=== PATIENT | male | born 1960 | race Caucasian/White ===

== ENCOUNTER 2021-04-14 11:45 | Emergency (ER) | payer OTHER, SELFPAY ==
--- NOTE | ~2021-04-14 | CT_ITS ---
EXAMINATION: CT abdomen pelvis w con INDICATION: Left lower quadrant pain TECHNIQUE: Computed tomographic images of the abdomen and pelvis were obtained after the administrati on of 100 cc of Omnipaque 350 intravenous contrast. The dose-length product (DLP) was 463.11 mGy-cm. Automated exposure control and iterative reconstruction technique were employed. COMPARISON: None available FINDINGS: Minimal dependent atelectasis is present in the lung bases. The heart size is normal. Calci fied coronary artery atherosclerosis is noted. The liver, spleen, pancreas, gallbladder, and adrenal glands are normal. The kidneys are unremarkable. There is calcified atherosclerosis of the aorta and many of the other arteries. No pathologically enlarged abdominal or pelvic lymph nodes are identified . There is no free intraperitoneal gas or evidence of bowel obstruction. There is diffuse wall thicke marika throughout the colon. There is advanced osteoarthritis in the left hip with fragmentation of the femoral head. Changes of right total hip arthroplasty are noted. IMPRESSION: 1. Findings consistent with pancolitis. Reviewed, dictated and finalized at location B.
[2021-04-14 11:52] VITALS: BP 106/79; PULSE 96; RESP 16; TEMP 36.4; O2SAT 99
[2021-04-14 12:24] LABS: Basophils Absolute Auto 0.1 K/mm3 (0.0-0.1); Basophils Percent Auto 0.8 % (0.2-1.2); Eosinophils Absolute Auto 0.2 K/mm3 (0-0.3); Eosinophils Percent Auto 1.5 % (0-4.4); Immature Granulocyte Absolute 0.06 K/mm3 (0.00-0.031); Immature Granulocyte Percent A 0.6 % (0-0.5); Lymphocytes Absolute Auto 1.12 K/mm3 (0.9-3.2); Lymphocytes Percent Auto 10.7 % (18.3-44.2); Mean Corpuscular HGB Conc 32.5 g/dl (32-36); Mean Corpuscular Hemoglobin 31.6 pg (26-34); Mean Corpuscular Volume 97.3 fl (80-100); Mean Platelet Volume 8.8 fl (7.4-10.4); Monocytes Absolute Auto 1.3 K/mm3 (0.1-0.6); Monocytes Percent Auto 12.8 % (2.6-8.5); Neutrophils Absolute Auto 7.7 K/mm3 (1.3-6.7); Neutrophils Percent Auto 73.6 % (45.5-73.1); Platelet Count Result 501 k/mm3 (150-375); Red Blood Count 4.11 M/mm3 (4.6-6.20); Red Cell Distribution Width 13.2 % (11.5-14.5); White Blood Count 10.5 K/mm3 (4.5-10.0)
[2021-04-14 12:42] LABS: Alanine Aminotransferase 15 U/L (4-50); Albumin Level 3.8 g/dL (3.5-5.1); Alkaline Phosphatase 90 U/L (38-126); Anion Gap 8 mmol/L (8-16); Aspartate Amino Transferase 23 U/L (17-59); Bilirubin,Total 0.2 mg/dL (0.2-1.3); Blood Urea Nitrogen 9 mg/dL (9-20); Calcium 9.1 mg/dL (8.4-10.2); Carbon Dioxide 23 mmol/L (22-30); Chloride 103 mmol/L (98-107); Estimated CRCL calculation 64 ml/min; Estimated Glomerular Filt Rate > 60; Glucose 117 mg/dL (65-110); Lipase 25 U/L (23-300); Potassium 4.1 mmol/L (3.4-5.0); Sodium 134 mmol/L (137-145)
--- NOTE | 2021-04-14 13:37 | ED.ABDPAIN ---
HPI - Abdominal Pain General Chief Complaint: Abdominal Pain Stated Complaint: Abd Pain x 2 weeks Time Seen by Provider: 04/14/21 11:57 History of Present Illness HPI narrative: Patient is a 60-year-old male who presents to the ER with abdominal cramping. Ongoing for 2 weeks. Associated with intermittent diarrhea. Also has occasional vomiting with this. Reports he had it for approximately 3 months and then the discomfort went away for 2 weeks and then returned again 2 weeks ago. He has tried a clear diet without a lot of improvement. No blood in his stool. No blood in his vomit. He is scheduled follow-up with a primary care physician because he has never had 1 previously. He is never had a colonoscopy. He does report weight loss and that he is now wearing suspenders instead of belts. Related Data Allergies Allergy/AdvReac Type Severity Reaction Status Date / Time No Known Allergies Allergy Mild Verified 04/14/21 11:51 Review of Systems Review of Systems: All systems reviewed & are unremarkable except as noted in HPI and below Constitutional: Constitutional: Denies chills, Denies fever(s) and Denies weakness ENT: Denies nasal congestion and Denies sore throat Cardiovascular: Cardiovascular: Denies chest pain, Denies rapid heart rate and Denies radiating jaw, neck or arm pain Respiratory: Respiratory: Denies cough and Denies dyspnea Gastrointestinal: Gastrointestinal: Reports abdominal pain, Reports bloating, Reports diarrhea and Reports nausea Musculoskeletal: Musculoskeletal: Denies back pain and Denies muscle cramps PMFSH Past Medical History Medical History (Updated 04/14/21 @ 14:38 by Baldemar Quezada MD) Healthy adult male Surgical History Surgical History (Updated 04/14/21 @ 13:42 by Baldemar Quezada MD) No history of previous surgery Social History Social History (Updated 04/14/21 @ 13:45 by Baldemar Quezada MD) Smoking status: Current every day smoker Alcohol intake: current Exam Narrative: GENERAL: Well-appearing, well-nourished, and in no acute distress. HEAD: Normocephalic, atraumatic. CHEST: Clear to auscultation. No respiratory distress. HEART: Regular rate and rhythm. Normal peripheral pulses. ABDOMEN: Soft, mild/moderate tenderness left upper and left lower quadrant, nondistended, normal active bowel sounds. EXTREMITIES: Normal range of motion. No edema. SKIN: Warm, dry, no rash. NEURO: Alert and oriented x3. PSYCH: Normal mood and affect. Course Course Emergency Course: Patient educated on findings of lab and CT results. Discussed treatment with Cipro and Flagyl. Recommend not drinking alcohol while on Flagyl. Follow-up with PCP. May require colonoscopy near future. Vital Signs Vital signs: Vital Signs Temperature 97.6 F 04/14/21 11:52 Pulse Rate 96 04/14/21 11:52 Respiratory Rate 16 04/14/21 11:52 Blood Pressure 106/79 04/14/21 11:52 Pulse Oximetry 99 04/14/21 11:52 Temperature 97.6 F 04/14/21 11:52 Pulse Rate 96 04/14/21 11:52 Respiratory Rate 16 04/14/21 11:52 Blood Pressure 106/79 04/14/21 11:52 Pulse Oximetry 99 04/14/21 11:52 MDM - Abdominal Pain Lab Data Result diagrams: 04/14/21 12:15 04/14/21 12:15 Labs: Lab Results 04/14/21 04/14/21 04/14/21 Range/Units 12:15 12:15 13:35 WBC 10.5 H (4.5-10.0) K/mm3 RBC 4.11 L (4.6-6.20) M/mm3 Hgb 13.0 L (14.0-18.0) g/dL Hct 40.0 L (42.0-52.0) % MCV 97.3 (80-100) fl MCH 31.6 (26-34) pg MCHC 32.5 (32-36) g/dl RDW 13.2 (11.5-14.5) % Plt Count 501 H (150-375) k/mm3 MPV 8.8 (7.4-10.4) fl Immature Gran % (Auto) 0.6 H (0-0.5) % Neut % (Auto) 73.6 H (45.5-73.1) % Lymph % (Auto) 10.7 L (18.3-44.2) % [place] % (Auto) 12.8 H (2.6-8.5) % Eos % (Auto) 1.5 (0-4.4) % Baso % (Auto) 0.8 (0.2-1.2) % Lymph # (Auto) 1.12 (0.9-3.2) K/mm3 [place] # (Auto) 1.3 H (0.1-0.6)
[2021-04-14 13:55] LABS: Add Urine Microscopic? YES; Appearance Urine Clear (Clear); Bacteria Urine Trace /hpf; Bilirubin Urine Negative (Negative); Blood Urine 1+ (Negative); Color Urine Amber (Yellow); Glucose Urine UA Negative (Negative); Ketones Urine Negative (Negative); Leukocyte Esterase Ur Negative LEU/UL (Negative); Mucus Urine Heavy /lpf; Nitrate Urine Negative (Negative); Protein Urine 2+ mg/dL (Negative); WBC Urine 0-3 /hpf
[2021-04-14 13:57] LABS: Specific Grav Ur 1.047 (1.001-1.035)
[2021-04-14 14:57] VITALS: BP 105/62; PULSE 90; RESP 18; O2SAT 99
== END 2021-04-14 14:58 | disposition home or self-care (01) ==
PROVIDERS: Emergency Provider Emergency Medicine; PCP Physician Assistant
DX: K51.00 Ulcerative (chronic) pancolitis without complications (principal); F17.200 Nicotine dependence, unspecified, uncomplicated; R10.9 Unspecified abdominal pain
CPT/HCPCS: 36415; 74177; 80053; 81001; 83690; 85025; 99284; Q9967

== ENCOUNTER 2021-05-11 13:59 | Outpatient (CLI) | payer OTHER, SELFPAY ==
--- NOTE | ~2021-05-11 | XR_ITS ---
XR hip LT min 2V DATE: 05/11/2021 14:19 INDICATION: Chronic left hip pain TECHNIQUE: AP, lateral views COMPARISON: 04/24/2021 CT abdomen pelvis FINDINGS: There is severe deformity of the left femoral head, with irregularity and flattening and pr ominent patchy sclerosis and cystic change, consistent with severe avascular necrosis. There is secon kwan prominent osteoarthritis. No recent fracture or dislocation of the left hip. Diffuse osteopenia. The pubic symphysis and sacroiliac joints appear normally aligned. Right hip prosthesis. 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 IMPRESSION: Severe avascular necrosis of left femoral head with secondary promi nent osteoarthritis Right hip prosthesis Osteopenia
== END 2021-05-11 14:00 | disposition home or self-care (01) ==
LOC: ANHIMG 14:03
PROVIDERS: PCP Physician Assistant; Visit Provider Physician Assistant
DX: M85.852 Other specified disorders of bone density and structure, left thigh (principal); M87.852 Other osteonecrosis, left femur; F17.200 Nicotine dependence, unspecified, uncomplicated
CPT/HCPCS: 73502

== ENCOUNTER 2022-01-11 13:07 | Observation (INO) | payer OTHER, SELFPAY ==
[2022-01-11] VITALS (23 sets, daily range): BP systolic 115–157; BP diastolic 77–97; PULSE 84–97; RESP 16–84; TEMP 36.2–36.8; O2SAT 96–100; BMI 24.2
--- NOTE | ~2022-01-11 | CT_ITS ---
EXAMINATION: CT abdomen pelvis wo con DATE: 01/11/2022 14:36 INDICATION: colitis, abdominal pain, diarrhea TECHNIQUE: Computed tomography (CT) of the abdomen and pelvis was performed without intravenous contr ast. Automated exposure control and iterative reconstruction technique were employed. The dose-length product was 386.25 mGy-cm. COMPARISON: 04/14/2021 FINDINGS: Lower thorax: Coronary artery calcifications. Liver: Normal. Biliary/Gallbladder: Gallbladder is normal. No bile duct dilation. Pancreas: No mass or duct dilation. Spleen: Normal. Adrenals:No mass. Kidneys: No mass, stone, or hydronephrosis. GI tract: No small or large bowel dilation. Diffuse colonic wall thickening, similar in distribution to the prior study although slightly more severe in the hepatic flexure. Slightly increased appendix dilation, with mild surrounding inflammatory change. Mesentery/Peritoneum: No ascites, mass, or free air. Retroperitoneum: No mass. Pelvis: Pelvic organs are within normal limits. Soft Tissues: Bilateral fat-containing inguinal hernias. Bones: No acute osseous finding. IMPRESSION: Pancolitis, slightly worsening at the hepatic flexure. Inflammatory changes of the appendix may be re lated to colitis, however acute appendicitis cannot be excluded. Reviewed, dictated and finalized at location K. IMPRESSION: Pancolitis, slightly worsening at the hepatic flexure. Inflammatory changes of the appendix may be related to colitis, however acute appendicitis cannot be ex cluded.
[2022-01-11 13:30] LABS: Basophils Absolute Auto 0.1 K/mm3 (0.0-0.1); Eosinophils Absolute Auto 0.2 K/mm3 (0-0.3); Eosinophils Percent Auto 2.2 % (0-4.4); Hematocrit 40.2 % (42.0-52.0); Immature Granulocyte Absolute 0.04 K/mm3 (0.00-0.031); Immature Granulocyte Percent A 0.4 % (0-0.5); Lymphocytes Absolute Auto 1.05 K/mm3 (0.9-3.2); Lymphocytes Percent Auto 11.6 % (18.3-44.2); Mean Corpuscular HGB Conc 32.3 g/dl (32-36); Mean Corpuscular Hemoglobin 31.7 pg (26-34); Mean Platelet Volume 8.6 fl (7.4-10.4); Monocytes Absolute Auto 0.9 K/mm3 (0.1-0.6); Monocytes Percent Auto 9.5 % (2.6-8.5); Neutrophils Absolute Auto 6.8 K/mm3 (1.3-6.7); Neutrophils Percent Auto 75.3 % (45.5-73.1); Platelet Count Result 466 k/mm3 (150-375); Red Cell Distribution Width 13.2 % (11.5-14.5); White Blood Count 9.1 K/mm3 (4.5-10.0)
[2022-01-11 13:40] LABS: Alanine Aminotransferase 12 U/L (6-50); Albumin Level 3.9 g/dL (3.5-5.1); Alkaline Phosphatase 120 U/L (38-126); Anion Gap 5 mmol/L (8-16); Aspartate Amino Transferase 26 U/L (17-59); Bilirubin,Total 0.2 mg/dL (0.2-1.3); Blood Urea Nitrogen 7 mg/dL (9-20); Calcium 8.6 mg/dL (8.4-10.2); Carbon Dioxide 24 mmol/L (22-30); Chloride 106 mmol/L (98-107); Estimated CRCL calculation 77 ml/min; Estimated Glomerular Filt Rate > 60; Glucose 92 mg/dL (65-110); Lipase 72 U/L (23-300); Potassium 4.1 mmol/L (3.4-5.0); Sodium 135 mmol/L (137-145)
[2022-01-11 14:29] LABS: Add Urine Microscopic? YES; Appearance Urine Slightly Cloudy (Clear); Bilirubin Urine 1+ (Negative); Blood Urine 2+ (Negative); Color Urine Brown (Yellow); Glucose Urine UA Negative (Negative); Ketones Urine Negative (Negative); Leukocyte Esterase Ur Negative LEU/UL (Negative); Nitrate Urine Negative (Negative); Protein Urine 2+ mg/dL (Negative); Specific Grav Ur >= 1.030 (1.001-1.035); Urobilinogen Urine 0.2 mg/dL (<2.0)
[2022-01-11 14:35] LABS: Bacteria Urine Trace /hpf; Cellular Casts Urine Present /lpf; Mucus Urine Heavy /lpf; Squamous Epithelial Cell Urine Rare /hpf (Few)
--- NOTE | 2022-01-11 14:51 | ED.ABDPAIN ---
HPI - Abdominal Pain General Chief Complaint: Abdominal Pain Stated Complaint: abd pain and diarrhea Time Seen by Provider: 01/11/22 14:04 Source: patient, RN notes reviewed and old records reviewed Mode of arrival: ambulatory Limitations: no limitations History of Present Illness HPI narrative: This is a 61 year old male with history of colitis who presents for evaluation of diarrhea and abdominal pain. Patient was diagnosed with pancolitis in April 2021, and he was discharged with antibiotics. Patient had colonoscopy performed in October 2021 and he states he was only told he had polyps. He states he has been having intermittent diarrhea for 2 months, and it has been daily for 1 week. He reports multiple stools daily that he describes as pudding . He is also having intermittent left lower abdominal pain for 2 months. This pain is worse with eating and drinking. He denies nausea, vomiting, fever. He reports chills with pain. He reports passing blood in his stool 3 weeks ago but denies rectal bleeding since. MD elicited complaint: abdominal pain Pain Consistency: intermittent Related Data Allergies Allergy/AdvReac Type Severity Reaction Status Date / Time Penicillins Allergy Unknown Verified 01/11/22 14:02 Review of Systems Review of Systems: All systems reviewed & are unremarkable except as noted in HPI and below Constitutional: Constitutional: Reports chills Cardiovascular: Cardiovascular: Denies chest pain and Denies rapid heart rate Respiratory: Respiratory: Denies chest congestion and Denies cough Gastrointestinal: Gastrointestinal: Reports abdominal pain and Reports diarrhea Genitourinary: Genitourinary: Denies hematuria and Denies dysuria [facility] Past Medical History Medical History (Updated 01/11/22 @ 22:24 by Betsy Pemberton MD) Alcohol abuse Colitis Tobacco dependence Weight loss Surgical History Surgical History (Updated 01/11/22 @ 21:20 by Nona Mckoy PA-C) History of colonoscopy with polypectomy History of tonsillectomy History of total right hip arthroplasty No history of previous surgery Family History Family History (Updated 01/11/22 @ 21:20 by Nona Mckoy PA-C) Other Diabetes mellitus Social History Social History (Updated 01/11/22 @ 21:21 by Nona Mckoy PA-C) Social History: Surrogate decision maker: Alyx Enrique, mother. Code status: Full code. Smoking packs per day: 1 Smoking cigarettes per day: 20.0 Years smoked: 51 Smoking pack-years: 51.00 Smoking status: Current every day smoker Tobacco type: cigarettes Alcohol intake: current Drinks per week: 25 Alcohol use details: Patient estimates drinking a pint of fireball a day with occasional shots as well as beer. Substance use: never Living arrangements: alone Spiritual care concerns: No Exam Const: General: healthy appearing and alert Nutritional Appearance: well nourished Orientation/consciousness: patient oriented x3 HENMT: Head: normal to inspection Eyes: EOM: EOMs intact bilaterally Resp: Effort & Inspection: normal respiratory effort Auscultation: clear to auscultation bilaterally and breath sounds present Cardio: Rate: regular rate Rhythm: regular rhythm Heart sounds: no murmurs GI: GI Palp: Yes Soft to palpation, Yes Tenderness to palpation present (GI) (LLQ), Yes Guarding due to palpation present (GI) (voluntary), No Rigid due to palpation and No Hernia present Auscultation: normal bowel sounds Back/Spine/Pelvis: Back: no CVA tenderness Skin: General skin exam: normal color Rashes: no rashes Neuro: General: patient oriented x3, moves all extremities and CN's II-XI intact bilaterally Psych: Mental Status: mental status grossly normal Course Reevaluation(s) Reevaluation #1: I Discussed with patient that his CT shows worsening colitis . Due to worsening colitis and inflammation of appendix will admit for IV antibiotics and GI c
[2022-01-11] MEDS: SODIUM CHLORIDE 0.9% IV 1,000 ML 999 ML IV CONT ×2 (15:09→15:10)
[2022-01-11] MEDS: metroNIDAZOLE 500 MG/ISO 100ML 500 MG/100 ML BAG 100 MG IVPB (15:37)
--- NOTE | 2022-01-11 15:48 | PC.NURSE ---
GI at bedside to assess pt.
--- NOTE | 2022-01-11 15:54 | WPDGICN ---
Assessment and Plan Assessment and plan (1) Pancolitis: Code(s): K51.00 - Ulcerative (chronic) pancolitis without complications Status: Inactive Assessment and Plan: it appears that he has been dealing with this for about 1 year given that his CT scan now is identical to the 1 he had last April. His symptoms were better when he had colonoscopy a few months ago. He cannot recall who did the procedure He will be scheduled for colonoscopy to be done tomorrow morning I discussed the procedure prep and risks with him. (2) Chronic diarrhea: Code(s): K52.9 - Noninfective gastroenteritis and colitis, unspecified Status: Acute Assessment and Plan: at times he cannot even drink liquids because it seems to go right through him. Even solid food will result in of loose bowel movement 15 or 20 minutes later. (3) Weight loss: Code(s): R63.4 - Abnormal weight loss Status: Acute Assessment and Plan: He lost about 10 or 15 lb due to not wanting to eat but most of this was last fall. His weight is fairly stable now although he has not eaten for the last 24 hours because of his discomfort. GI Consult Note Consult date/time: 01/11/22 15:54 HPI: Suhas Enrique is a 61 year old male who came to the emergency room today with abdominal pain and diarrhea. He states that he has had discomfort for the past month or 2. Actually this began about a year ago initially. He had had abdominal discomfort and severe diarrhea for a couple months when he went to the emergency room in April. He had a CT scan that showed pancolitis. He was discharged on antibiotics and felt better few weeks later. Over the past several months he began having episodes of diarrhea again and vague abdominal pain that would at times get severe and cramping in character. It is almost always in the lower left side. He has lost about 10 or 15 lb but that was last fall. It is a densely, he had a colonoscopy for screening couple months ago and was told it was normal except that the small polyp was removed. CT scan of the abdomen here again shows diffuse colitis, same as last year. He cannot recall who did his colonoscopy but it was done at [facility]. This time he can not recall the name of his primary care provider. He had not been traveling or taking antibiotics prior to his illness last year or with the more recent flare up. He has seen blood in the stools. About a month ago he passed what looked like up cup of dark red blood. He has seen blood in his stools and a few other occasions as well. There is no family history of inflammatory bowel disease or other colon issues. Review of Systems Review of Systems: All systems reviewed & are unremarkable except as noted in HPI and below PMFSH Past Medical History Medical History Colitis Healthy adult male Surgical History Surgical History No history of previous surgery Social History Social History Smoking status: Current every day smoker Alcohol intake: current Meds Home Medications and Allergies Home Medications Medication Instructions Recorded Confirmed Type ciprofloxacin HCl 500 mg tablet 500 mg PO Q12H #20 tabs 04/14/21 Rx (Cipro) metronidazole 500 mg tablet 500 mg PO Q8H #30 tabs 04/14/21 Rx Allergies Allergy/AdvReac Type Severity Reaction Status Date / Time Penicillins Allergy Unknown Verified 01/11/22 14:02 Vital Signs Vital Signs - 24 hr 01/11/22 13:10 01/11/22 14:20 01/11/22 14:21 Temperature 36.2 C L Pulse Rate 90 Respiratory Rate 18 Blood Pressure 128/89 115/86 Pulse Oximetry 97 100 Oxygen Delivery Room Air 01/11/22 14:43 01/11/22 14:45 01/11/22 15:27 Temperature Pulse Rate Respiratory Rate Blood Pressure Pulse
--- NOTE | 2022-01-11 16:00 | PM.IMHP ---
H&P: HPI History of Present Illness Date/Time: 01/11/22 16:00 Chief Complaint: Abdominal pain and diarrhea. Narrative: This is a 61-year-old smoker with history of alcohol abuse, colon polyps, and colitis who presented to the emergency department for evaluation of abdominal pain and diarrhea. Last April he had similar symptoms at which time a CT showed lewis colitis for which she was treated with antibiotics. His symptoms improved and a colonoscopy done at [facility] in October was unremarkable aside from a small benign colon polyp. Unfortunately about 2 months ago he started to have diarrhea again and the past week he reports having loose stools almost every hour. Additionally he has intermittent left mid to lower quadrant cramping that has not been significant enough for him to require analgesics. CT today once again showed findings of pancolitis and some inflammatory changes of the appendix though that may be related to the colitis. He is being admitted in this setting for further treatment and evaluation. On occasion he has noticed some dark red blood admixed with his stool and several weeks ago he had an episode where he passed a large amount of clots however he has not noticed any blood in his stool recently. He denies fever, chills, sweats, and vomiting. No recent antibiotic use or travel. He lost about 10 to 15 lb last fall but weight has remained stable since that time. No personal or family history of inflammatory bowel disease or colon cancer. Review of Systems Review of Systems: Twelve systems were reviewed. No cold or flu symptoms. No sick contacts. He has never had signs or symptoms of alcohol withdrawal. Last year when he had colitis he did not drink a drop of alcohol for 3 weeks and did just fine. Except as documented, all other systems were reviewed and are negative. [facility] Past Medical History Medical History (Updated 01/11/22 @ 21:24 by Nona Mckoy PA-C) Alcohol abuse Colitis Tobacco dependence Weight loss Surgical History Surgical History (Updated 01/11/22 @ 21:20 by Nona Mckoy PA-C) History of colonoscopy with polypectomy History of tonsillectomy History of total right hip arthroplasty No history of previous surgery Family History Family History (Updated 01/11/22 @ 21:20 by Nona Mckoy PA-C) Other Diabetes mellitus Social History Social History (Updated 01/11/22 @ 21:21 by Nona Mckoy PA-C) Social History: Surrogate decision maker: Alyx Enrique, mother. Code status: Full code. Smoking packs per day: 1 Smoking cigarettes per day: 20.0 Years smoked: 51 Smoking pack-years: 51.00 Smoking status: Current every day smoker Tobacco type: cigarettes Alcohol intake: current Drinks per week: 25 Alcohol use details: Patient estimates drinking a pint of fireball a day with occasional shots as well as beer. Substance use: never Living arrangements: alone Spiritual care concerns: No Meds Home Medications and Allergies Home Medications Medication Instructions Recorded Confirmed Type ciprofloxacin HCl 500 mg tablet 500 mg PO Q12H #20 tabs 04/14/21 Rx (Cipro) metronidazole 500 mg tablet 500 mg PO Q8H #30 tabs 04/14/21 Rx Allergies Allergy/AdvReac Type Severity Reaction Status Date / Time Penicillins Allergy Unknown Verified 01/11/22 14:02 Vital Signs Vital Signs - 24 hr 01/11/22 13:10 01/11/22 14:20 01/11/22 14:21 Temperature 97.1 F L Pulse Rate 90 Respiratory Rate 18 Blood Pressure 128/89 115/86 Pulse Oximetry 97 100 Oxygen Delivery Room Air 01/11/22 14:43 01/11/22 14:45 01/11/22 15:27 Temperature Pulse Rate Respiratory Rate Blood Pressure Pulse Oximetry 99 98 97 Oxygen Delivery 01/11/22 16:04 01/11/22 16:06 01/11/22 16:08 Temperature Pulse Rate 95 97 93 Respiratory Rate Blood Pressure 131/85 147/89 H 145/97 H Pulse Oximetry Oxygen Delivery Exam Narrative:
--- NOTE | 2022-01-11 16:24 | PC.NURSE ---
Hospitalist at bedside to assess pt.
[2022-01-11] MEDS: MORPHINE SULFATE (*CRX) 4 MG/ML INJ IV PUSH (18:15)
--- NOTE | 2022-01-11 18:29 | PC.NURSE ---
Patient declines administration of Mirilax until in inpatient hospital bed.
--- NOTE | 2022-01-11 19:19 | PC.NURSE ---
Patient report given to KYM Lagunas. All questions answered and care of patient transferred.
--- NOTE | 2022-01-11 19:22 | PC.NURSE ---
Report received from Kasandra RN and care of pt assumed at this time.
[2022-01-11] MEDS: polyethylene glycoL 3350 238 GM BOTTLE PO (20:24)
[2022-01-11] MEDS: SODIUM CHLORIDE 0.9% IV 1,000 ML 125 ML IV CONT (20:24)
[2022-01-11] MEDS: THIAMINE HCL 200 MG/2 ML VIAL 100 MG IV PUSH (22:07)
--- NOTE | 2022-01-11 22:22 | PC.NURSE ---
This patient, Suhas Enrique, was admitted to 3 Medical Room 344-01. Patient/family oriented to hospital policies and general routines including ID bracelet, bed and alarms, visiting hours, pain management, procedures, bathroom and other care routines, personal items, smoking policy, room service/diet, and visiting hours. Information on how to activate the Rapid Response Team has been discussed. Patient/Family are encouraged to report perceived risks to care and to ask questions if they do not understand what they are told or what they should do. Pt up to floor and colon prep started, instructed pt need to complete prep for test in am.
[2022-01-12] VITALS (8 sets, daily range): BP systolic 96–138; BP diastolic 66–88; PULSE 74–97; RESP 16–25; TEMP 36.7–37.1; O2SAT 93–99
[2022-01-12] MEDS: metroNIDAZOLE 500 MG/ISO 100ML 500 MG/100 ML BAG 100 MG IVPB ×5 (00:28→23:38)
[2022-01-12 05:46] LABS: Basophils Absolute Auto 0.1 K/mm3 (0.0-0.1); Basophils Percent Auto 1.1 % (0.2-1.2); Eosinophils Absolute Auto 0.1 K/mm3 (0-0.3); Eosinophils Percent Auto 0.9 % (0-4.4); Hematocrit 35.4 % (42.0-52.0); Hemoglobin 11.4 g/dL (14.0-18.0); Immature Granulocyte Absolute 0.05 K/mm3 (0.00-0.031); Immature Granulocyte Percent A 0.6 % (0-0.5); Lymphocytes Absolute Auto 1.15 K/mm3 (0.9-3.2); Lymphocytes Percent Auto 13.5 % (18.3-44.2); Mean Corpuscular HGB Conc 32.2 g/dl (32-36); Mean Corpuscular Hemoglobin 31.6 pg (26-34); Mean Corpuscular Volume 98.1 fl (80-100); Mean Platelet Volume 8.6 fl (7.4-10.4); Monocytes Percent Auto 11.9 % (2.6-8.5); Neutrophils Absolute Auto 6.1 K/mm3 (1.3-6.7); Platelet Count Result 380 k/mm3 (150-375); Red Blood Count 3.61 M/mm3 (4.6-6.20); Red Cell Distribution Width 13.1 % (11.5-14.5); White Blood Count 8.5 K/mm3 (4.5-10.0)
[2022-01-12 06:14] LABS: Alanine Aminotransferase 9 U/L (6-50); Albumin Level 3.2 g/dL (3.5-5.1); Alkaline Phosphatase 91 U/L (38-126); Anion Gap 5 mmol/L (8-16); Aspartate Amino Transferase 22 U/L (17-59); Bilirubin,Total 0.2 mg/dL (0.2-1.3); Blood Urea Nitrogen 6 mg/dL (9-20); Calcium 7.7 mg/dL (8.4-10.2); Carbon Dioxide 20 mmol/L (22-30); Chloride 106 mmol/L (98-107); Estimated CRCL calculation 77 ml/min; Estimated Glomerular Filt Rate > 60; Glucose 91 mg/dL (65-110); Magnesium 1.7 mg/dL (1.6-2.3); Potassium 3.6 mmol/L (3.4-5.0); Sodium 131 mmol/L (137-145)
[2022-01-12] MEDS: LACTATED RINGERS 1,000 ML 150 ML IV CONT (09:21)
[2022-01-12] MEDS: fentaNYL CITRATE INJ (*CRX) 100 MCG/2 ML VIAL 25 MCG IV PUSH ×2 (09:22→10:29)
--- NOTE | 2022-01-12 09:33 | WPDANESEPPF ---
Anes - Initial Pre Proc Eval Procedure: Operation Date: 01/12/22 10:30 Proposed Procedures p Colonoscopy - Suhas Mckenzie MD Date/Time: 01/12/22 09:33 Surgeon: Jasmin Mckee PA-C Pre Op Diagnosis: pancolitis Patient Data Age: 61 Gender: M Height: 1.75 m Weight: 74.5 kg Last Vital Signs Temp 98.2 F 01/12/22 09:00 Pulse 96 01/12/22 09:00 Resp 16 01/12/22 09:00 BP 134/88 01/12/22 09:00 Pulse Ox 98 01/12/22 09:00 O2 Del Method Room Air 01/12/22 09:00 Allergies Allergy/AdvReac Type Severity Reaction Status Date / Time Penicillins Allergy Unknown Verified 01/12/22 09:03 Home Medications Medication Instructions Recorded Confirmed Type No Home Medications 01/12/22 01/12/22 History Laboratory Tests 01/11/22 01/11/22 01/11/22 13:20 13:20 14:11 WBC 9.1 K/mm3 K/mm3 (4.5-10.0) RBC 4.10 M/mm3 L M/mm3 (4.6-6.20) Hgb 13.0 g/dL L g/dL (14.0-18.0) Hct 40.2 % L % (42.0-52.0) MCV 98.0 fl fl (80-100) MCH 31.7 pg pg (26-34) MCHC 32.3 g/dl g/dl (32-36) RDW 13.2 % % (11.5-14.5) Plt Count 466 k/mm3 H k/mm3 (150-375) MPV 8.6 fl fl (7.4-10.4) Immature Gran % (Auto) 0.4 % % (0-0.5) Neut % (Auto) 75.3 % H % (45.5-73.1) Lymph % (Auto) 11.6 % L % (18.3-44.2) [place] % (Auto) 9.5 % H % (2.6-8.5) Eos % (Auto) 2.2 % % (0-4.4) Baso % (Auto) 1.0 % % (0.2-1.2) Lymph # (Auto) 1.05 K/mm3 K/mm3 (0.9-3.2) [place] # (Auto) 0.9 K/mm3 H K/mm3 (0.1-0.6) Eos # (Auto) 0.2 K/mm3 K/mm3 (0-0.3) Baso # (Auto) 0.1 K/mm3 K/mm3 (0.0-0.1) Abs Immat Gran (auto) 0.04 K/mm3 H K/mm3 (0.00-0.031) Absolute Neuts (auto) 6.8 K/mm3 H K/mm3 (1.3-6.7) Absolute Nucleated RBC 0.0 K/mm3 K/mm3 (0.0-0.012) Nucleated RBC % 0.0 % % (0.0-0.2) Sodium 135 mmol/L L mmol/L (137-145) Potassium 4.1 mmol/L mmol/L (3.4-5.0) Chloride 106 mmol/L mmol/L (98-107) Carbon Dioxide 24 mmol/L mmol/L (22-30) Anion Gap 5 mmol/L L mmol/L (8-16) BUN 7 mg/dL L mg/dL (9-20) Creatinine 0.90 mg/dL mg/dL (0.7-1.3) Estim Creat Clear Calc 77 ml/min ml/min Estimated GFR > 60 (59 - ) Glucose 92 mg/dL mg/dL (65-110) Calcium 8.6 mg/dL mg/dL (8.4-10.2) Magnesium Total Bilirubin 0.2 mg/dL mg/dL (0.2-1.3) AST 26 U/L U/L (17-59) ALT 12 U/L U/L (6-50) Alkaline Phosphatase 120 U/L U/L (38-126) Total Protein 8.0 g/dL g/dL (6.3-8.2) Albumin 3.9 g/dL g/dL (3.5-5.1) Lipase 72 U/L U/L (23-300) Urine Color Brown H (Yellow) Urine Appearance Slightly cloudy (Clear) Urine pH 6.0 (5.0-9.0) Ur Specific [place] >= 1.030 (1.001-1.035) Urine Protein 2+ mg/dL H mg/dL (Negative) Urine Glucose (UA) Negative mg/dL mg/dL (Negative) Urine Ketones Negative mg/dL mg/dL (Negative) Ur Blood (Man) 2+ H (Negative) Urine Nitrate Negative (Negative) Urine Bilirubin 1+ H (Negative) Urine Urobilinogen 0.2 mg/dL mg/dL (<2.0) Leukocyte Esterase Rfl Negative NITZA/UL NITZA/UL (Negative) Urine RBC 6-10 /hpf H /hpf (0-2) Urine WBC 4-6 /hpf H /hpf Ur Squamous Epith Cells Rare /hpf /hpf (Few) Urine Bacteria Trace /hpf /hpf Cellular Casts Present /lpf H /lpf (None) Hyaline Casts 3-4 /lpf H /lpf (None) Urine Mucus Heavy /lpf H /lpf 01/12/22 01/12/22 05:31 05:31 WBC 8.5 K/mm3 K/mm3 (4.5-10.0) RBC 3.61 M/mm3 L M/mm3 (4.6-6.20) Hgb 11.4 g/dL L g/dL (14.0-1
--- NOTE | 2022-01-12 12:03 | PM.IMPN ---
Progress Note: A&P Assessment and Plan (1) Pancolitis: Code(s): K51.00 - Ulcerative (chronic) pancolitis without complications Status: Acute Assessment and Plan: Colonoscopy showed rectal polyps, colonic ulcers, and ulcerative chronic pancolitis without complications. Stool studies including stool culture have been ordered and are pending. D/C antibiotics given colonoscopy finding, no leukocytosis. GI recommended follow-up in the office, resumption of home medications, starting a low residue diet, and follow-up with the GI office pending biopsies and stool cultures. We have advanced his diet today, if he tolerates this and we can get pain under better control, likely D/C tomorrow. (2) Elevated blood pressure reading: Code(s): R03.0 - Elevated blood-pressure reading, without diagnosis of hypertension Status: Acute Assessment and Plan: Patient with mild hypertension, is normotensive today. Follow-up PCP after discharge with home readings. (3) Tobacco dependence: Code(s): F17.200 - Nicotine dependence, unspecified, uncomplicated Status: Acute Assessment and Plan: He declines the need for nicotine patch. (4) Alcohol abuse: Code(s): F10.10 - Alcohol abuse, uncomplicated Status: Acute Assessment and Plan: CIWAs all < 4. PRN ativan for elevated CIWA. Denies ever having signs or symptoms of alcohol withdrawal. Initiate CIWA protocol, however, given significant alcohol intake. Subjective Date/time seen: 01/12/22 12:03 7-year-old male with history of alcohol abuse, lewis colitis who presents for abdominal pain x2 weeks. He does endorse abdominal pain, and nausea and vomiting yesterday with his bowel prep. He denies nausea, vomiting, chest pain, shortness of breath, lower extremity swelling, or blood in the stool today. He wants a cigarette and declines a nicotine patch. We discussed the colonoscopy findings of ulcerative colitis. He states he does have a niece with Crohn's disease, but no other family members with ulcerative colitis. Review of Systems Review of Systems: All systems reviewed & are unremarkable except as noted in HPI and below Exam Narrative: GENERAL APPEARANCE: Thin adult male, alert and oriented x 3, in mild distress. HEENT: PERRL, EOMI. Sclerae anicteric. Moist mucous membranes. NECK: Supple. No JVD or obvious carotid bruits. RESPIRATORY: Respirations are nonlabored. Breath sounds are equal and clear bilaterally. No wheezes, Rhonchi, or rales. CARDIOVASCULAR: Regular rate and rhythm with normal S1-S2. No murmurs, gallops, or rubs. GASTROINTESTINAL: Soft, concave, and benign. Patient does have diffuse abdominal tenderness. No organomegaly or hernia. Bowel sounds are present. SKIN: Warm, dry, well perfused. Good turgor. No lesions, nodules, or rashes noted. EXTREMITIES: No cyanosis, clubbing, or edema. Radial and pedal pulses intact. NEUROLOGICAL: Alert. Cranial nerves 2-12 are grossly intact. No gross focal deficits to casual conversation. PSYCHIATRIC: Pleasant and cooperative with normal mood and affect. Objective Data Vital Signs Vital Signs: Vital Signs - 24 hr 01/11/22 13:10 01/11/22 14:20 01/11/22 14:21 Temperature 97.1 F L Pulse Rate 90 Respiratory Rate 18 Blood Pressure 128/89 115/86 Pulse Oximetry 97 100 Oxygen Delivery Room Air 01/11/22 14:43 01/11/22 14:45 01/11/22 15:27 Temperature Pulse Rate Respiratory Rate Blood Pressure Pulse Oximetry 99 98 97 Oxygen Delivery 01/11/22 16:04 01/11/22 16:06 01/11/22 16:08 Temperature Pulse Rate 95 97 93 Respiratory Rate Blood Pressure 131/85 147/89 H 145/97 H Pulse Oximetry Oxygen Delivery 01/11/22 16:41 01/11/22 16:45 01/11/22 16:47 Temperature Pulse Rate Respiratory Rate Blood Pressure 125/77 Pulse Oximetry 100 100 100 Oxygen Delivery 01/11/22 17:00
[2022-01-12] MEDS: SODIUM CHLORIDE 0.9% IV 1,000 ML 75 ML IV CONT (12:20)
[2022-01-12] MEDS: MORPHINE SULFATE (*CRX) 2 MG/ML INJ IV PUSH (19:49)
[2022-01-13] MEDS: SODIUM CHLORIDE 0.9% IV 1,000 ML 75 ML IV CONT (05:14)
[2022-01-13] MEDS: metroNIDAZOLE 500 MG/ISO 100ML 500 MG/100 ML BAG 100 MG IVPB (05:14)
[2022-01-13 05:35] VITALS: BP 129/85; PULSE 92; RESP 16; TEMP 36.6; O2SAT 97
--- NOTE | 2022-01-13 06:55 | WPDGIPROGNO ---
Progress Note: A&P Assessment and Plan (1) Pancolitis: Code(s): K51.00 - Ulcerative (chronic) pancolitis without complications Status: Inactive Assessment and Plan: it appears that he has been dealing with this for about 1 year given that his CT scan now is identical to the 1 he had last April. His symptoms were better when he had colonoscopy a few months ago. He cannot recall who did the procedure He will be scheduled for colonoscopy to be done tomorrow morning I discussed the procedure prep and risks with him. 01/13 I think he could be discharged today on mesalamine. I will have him follow-up with me in the office in 1 week. (2) Chronic diarrhea: Code(s): K52.9 - Noninfective gastroenteritis and colitis, unspecified Status: Acute Assessment and Plan: at times he cannot even drink liquids because it seems to go right through him. Even solid food will result in of loose bowel movement 15 or 20 minutes later. Stool studies have not yet been obtained. Unfortunately they were not obtained during his colonoscopy prep that he has had no stools since his procedure. The laboratory would no longer except stool specimens from the endoscopy department. (3) Weight loss: Code(s): R63.4 - Abnormal weight loss Status: Acute Assessment and Plan: He lost about 10 or 15 lb due to not wanting to eat but most of this was last fall. His weight is fairly stable now although he has not eaten for the last 24 hours because of his discomfort. Subjective Date/time seen: Suhas Enrique is a 61 year old male? who came to the emergency room today with abdominal pain and diarrhea.? He states that he has had discomfort for the past month or 2.? Actually this began about a year ago initially.? He had had abdominal discomfort and severe diarrhea for a couple months when he went to the emergency room in April.? He had a CT scan that showed pancolitis.? He was discharged on antibiotics and felt better few weeks later.? Over the past several months he began having episodes of diarrhea again and vague abdominal pain that would at times get severe and cramping in character.? It is almost always in the lower left side.? He has lost about 10 or 15 lb but that was last fall.? It is a densely, he had a colonoscopy for screening couple months ago and was told it was normal except that the small polyp was removed. ? CT scan of the abdomen here again shows diffuse colitis, same as last year.? He cannot recall who did his colonoscopy? but it was done at [facility].? This time he can not recall the name of his primary care provider.? He had not been traveling or taking antibiotics prior to his illness last year or with the more recent flare up.? He has seen blood in the stools.? About a month ago he passed what looked like up cup of dark red blood. 01/13/22 06:55 Today he states he feels good. He has only mild pain. He tolerated his low residue diet last night. We are still awaiting records from [facility], where he apparently had a normal colonoscopy 2 months ago. This is strange because he has had severe colitis seen on CT scan for the past year. Because he is tolerating his diet, I think he could be discharged today and I will have a follow-up with me in the office in a week or 2. Depending on whether biopsies show ulcerative colitis or Crohn's disease, that will determine his appropriate therapy. For now however I will start him on mesalamine until we determine what other modalities might be necessary Exam Const: General: alert Orientation/consciousness: patient oriented x3 Resp: Auscultation: clear to auscultation bilaterally Cardio: Rhythm: regular rhythm GI: GI Palp: Yes abdominal tenderness ( mild today) Percussion: Yes normal to percussion Auscultation: normal bowel sounds Neuro: General: patient oriented x3 Objective Data Vital Signs Vital Signs: Vital Signs - 24 hr 01/12/
[2022-01-13 07:55] VITALS: PULSE 99; O2SAT 95
[2022-01-13] MEDS: MESALAMINE 250 MG CAP CR 1000 MG PO ×2 (09:50→12:58)
--- NOTE | 2022-01-13 09:51 | PM.DS ---
DS: Admitting Diagnosis Discharge Date 01/13/22 1600 Admitting Diagnosis Pancolitis DS: Discharge Diagnosis Discharge Diagnosis (1) Pancolitis: Code(s): K51.00 - Ulcerative (chronic) pancolitis without complications Status: Acute Assessment and Plan: Colonoscopy showed rectal polyps, colonic ulcers, and ulcerative chronic pancolitis without complications. Stool studies including stool culture have been ordered and are pending. D/C antibiotics given colonoscopy finding, no leukocytosis. GI recommended follow-up in the office, resumption of home medications, starting a low residue diet, and follow-up with the GI office pending biopsies and stool cultures. 01/13- Patient tolerated his low residue diet. GI started on mesalamine with OK to discharge today. Will need to follow up with GI in the office in 1-2 weeks for biopsy results and further medical management. Will D/C antibiotics given no indications of infection at this time. (2) Elevated blood pressure reading: Code(s): R03.0 - Elevated blood-pressure reading, without diagnosis of hypertension Status: Acute Assessment and Plan: Patient with mild hypertension during his stay, but stable. Follow-up PCP after discharge with home readings. (3) Tobacco dependence: Code(s): F17.200 - Nicotine dependence, unspecified, uncomplicated Status: Acute Assessment and Plan: He declines the need for nicotine patch. (4) Alcohol abuse: Code(s): F10.10 - Alcohol abuse, uncomplicated Status: Acute Assessment and Plan: CIWAs all 0 for the past 24 hrs. PRN ativan for elevated CIWA. Denies ever having signs or symptoms of alcohol withdrawal. DS: Summary Hospital Course Reason for hospitalization: Pancolitis Hospital Course: See above for full hospital course. Status at Discharge Cognitive/behavioral status at discharge: Progressing to baseline Time Spent with Patient Time attestation: Total time spent providing and/or coordinating discharge services: 35 mins DS: Data Data Completed and Pending Pending studies at discharge: Pending at discharge 01/12/22 09:59 Surgical [PTH] Routine Discharge Plan Discharge Attending physician on discharge: Debbie Rodriguez Consulting providers: Suhas Mckenzie Discharging Clinician: Jasmin Mckee Anticipated Discharge Date/Time: 01/13/22 14:33 Patient Disposition: Home, Self-Care Activity: unlimited Diet: low fiber Discharge Instructions: Medications: -Take all medications as prescribed. -Start new medications: Mesalamine. Instructions: - Continue a low-fiber/low residue diet - Be sure to get exercise like walking, but don't overdo it. - Be sure to get plenty of sleep at night and drink plenty of fluids. - Return if you experience worsening of your symptoms, loss of consciousness, chest pains, new shortness of breath, or fevers over 101.4 degrees. Follow up: - Follow-up with GI in 1-2 weeks with the results of your [place] colonoscopy. - Follow up with your primary care provider in 2-4 weeks It has been a pleasure taking care of you during your stay at [facility]! Patient Instructions: How to Stop Smoking (GEN), Low Fiber Diet (DC), Antibiotic Form Stand Alone Forms: General Discharge Information Follow-up/Referrals: Suhas Mckenzie MD [Physician] - 1 Week (Colonoscopy/ biopsy results. ) Discharge Medications: New Pentasa 250 mg Capsule, Extended Release 1,000 mg PO QID 14 Days Qty: 224 0RF No Action No Home Medications Date of admission: 01/11/22 16:20 Primary Care Provider: NoahVeda Admitting Provider: Vanesa Garland Attending physician on admission: Jasmin Mckee Condition: Stable Quality VTE Prophylaxis VTE prophylaxis: mechanical ordered
[2022-01-13 12:00] VITALS: BP 129/85
== END 2022-01-13 15:55 | disposition home or self-care (01) ==
LOC: ANHED 16:06 → ANH3MED 19:19
PROVIDERS: Family Medicine; Internal Medicine Gastroenterology; Admitting Provider Family Medicine; Emergency Provider General Practice; PCP Physician Assistant; Visit Provider Student in an Organized Health Care Education/Training Program
PROC: 0DJD8ZZ Inspection of Lower Intestinal Tract, Via Natural or Artificial Opening Endoscopic (ICD-10-PCS; CPT 45378; principal; 2022-01-12 10:30)
DX: K51.00 Ulcerative (chronic) pancolitis without complications (principal); K62.1 Rectal polyp; R63.4 Abnormal weight loss; R03.0 Elevated blood-pressure reading, without diagnosis of hypertension; F10.10 Alcohol abuse, uncomplicated; F17.210 Nicotine dependence, cigarettes, uncomplicated
CPT/HCPCS: 45380; 36415; 74176; 80053; 81001; 83690; 83735; 85025; 88305; 96361; 96365; 96366; 96367; 96374; 96375; 96376; 99285; A9270; G0378; G0379; J1956; J2270; J2704; J3010; J3411; J7030; J7120

== ENCOUNTER 2022-02-09 13:40 | Emergency (ER) | payer OTHER, SELFPAY ==
--- NOTE | ~2022-02-09 | XR_ITS ---
EXAMINATION: XR knee LT 3V DATE: 02/09/2022 14:06 INDICATION: Left knee pain TECHNIQUE: Three views of the left knee were obtained. COMPARISON: None. FINDINGS: Alignment is normal. No fracture or osteochondral lesion. Chondrocalcinosis is noted. There is mild tricompartmental osteoarthritis characterized by tiny marginal osteophytes. No joint effusio n/synovitis. Soft tissues are unremarkable. IMPRESSION: 1. No acute osseous abnormality. Reviewed, dictated and finalized at location B.
[2022-02-09 13:44] VITALS: BP 140/92; PULSE 70; RESP 18; TEMP 36.9; O2SAT 99
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
[2022-02-09] MEDS: HYDROcodone/acetaminophen (*CRX) 5-325 MG TABLET 1 TAB PO (14:44)
== END 2022-02-09 15:00 | disposition home or self-care (01) ==
PROVIDERS: Emergency Provider Nurse Practitioner Family; PCP Physician Assistant
DX: S89.92XA Unspecified injury of left lower leg, initial encounter (principal); Z96.641 Presence of right artificial hip joint; F17.210 Nicotine dependence, cigarettes, uncomplicated; V18.4XXA Pedal cycle driver injured in noncollision transport accident in traffic accident, initial encounter; Y93.55 Activity, bike riding
CPT/HCPCS: 73562; 99283; A9270

== ENCOUNTER 2022-10-03 10:03 | Outpatient (CLI) | payer OTHER, SELFPAY ==
[2022-10-13 20:37] LABS: Calprotectin, Stool 62 mcg/g
== END 2022-10-03 10:04 | disposition home or self-care (01) ==
LOC: ANHLAB 10:05
PROVIDERS: PCP Physician Assistant; Visit Provider Internal Medicine Gastroenterology
DX: K51.00 Ulcerative (chronic) pancolitis without complications (principal)
CPT/HCPCS: 83993

== ENCOUNTER 2023-08-21 14:09 | Outpatient (CLI) | payer OTHER, SELFPAY ==
--- NOTE | ~2023-08-21 | CT_ITS ---
EXAMINATION:CT lung screening DATE: 08/21/2023 14:55 INDICATION: Personal history of nicotine dependence. Current smoker with 51 pack year history. TECHNIQUE: Computed tomography (CT) of the chest was performed without intravenous contrast. Automate d exposure control and iterative reconstruction technique were employed. The dose-length product (DLP ) was 99.19 mGy-cm. COMPARISON: CT abdomen and pelvis 01/11/22. FINDINGS: There is mild scarring at the lung apices. There is mild emphysema. There is a 9 mm nodule in right upper lobe. There is a 3 mm nodule in right upper lobe. There is mild atelectasis bilaterall y. There is a small left pleural effusion. The heart size is normal. There are coronary artery calcif ications. No pericardial effusion. There is mild bilateral gynecomastia. There is moderate cervical s pondylosis and mild thoracic spondylosis. IMPRESSION: 1. Lung-RADS category 4A: Suspicious. PET/CT or 3 month noncontrast low-dose chest CT is recommended. Reviewed, dictated and finalized at location E. VERY REP IMPRESSION: 1. Lung-RADS category 4A: Suspicious. PET/CT or 3 month noncontrast low-dose ch est CT is recommended.
== END 2023-08-21 14:10 | disposition home or self-care (01) ==
PROVIDERS: PCP Physician Assistant; Visit Provider Physician Assistant
DX: Z12.2 Encounter for screening for malignant neoplasm of respiratory organs (principal); R91.8 Other nonspecific abnormal finding of lung field; M25.559 Pain in unspecified hip; M79.659 Pain in unspecified thigh; Z87.891 Personal history of nicotine dependence
CPT/HCPCS: 71271

== ENCOUNTER 2023-09-13 13:28 | Outpatient (CLI) | payer OTHER, SELFPAY ==
--- NOTE | ~2023-09-13 | PE_ITS ---
EXAMINATION: PET skull to mid thigh DATE: 09/13/2023 15:13 INDICATION: Abnormal finding in lung . Lung nodule. TECHNIQUE: Blood glucose level was 98 mg/dL. 6.375 mCi of 18-fluorodeoxyglucose (18-FDG) was administ ered i.v. Low dose computed tomography (CT) images were acquired from the base of the brain to the pr oximal thighs for attenuation correction and anatomic localization. Automated exposure control was em ployed. Dose-length product (DLP) was 736 mGy-cm. Positron emission tomography (PET) images were acqu ired in the same distribution. COMPARISON: Chest CT 08/21/2023 FINDINGS: Head/neck: There is mucosal thickening in the paranasal sinuses. There are no pathologically enlarged lymph nodes. Chest: There is mild emphysema. There is a 9 mm nodule in right upper lobe with maximum SUV of 4.7. N o pleural effusion. The heart size is normal. There are coronary artery calcifications. No pericardia l effusion. There are multiple healing left rib fractures. Abdomen/pelvis/proximal thighs: The liver, gallbladder, spleen, pancreas, adrenal glands, and kidneys are normal. There is a left inguinal hernia containing fat. There are no dilated loops of bowel. The re are no pathologically enlarged lymph nodes. There is no free intraperitoneal fluid. There is a tot al right hip arthroplasty. There is advanced left hip osteoarthritis. IMPRESSION: 1. 9 mm nodule in right lung upper lobe with increased activity, consistent with primary bronchogenic carcinoma. CT-guided biopsy is recommended. 2. Mild emphysema. Reviewed, dictated and finalized at location E. TORIAL ACCOUNT MANAGER IMPRESSION: 1. 9 mm nodule in right lung upper lobe with increased activity, consistent wit h primary bronchogenic carcinoma. CT-guided biopsy is recommended. 2. Mild emphysema.
--- NOTE | ~2023-09-13 | XR_ITS ---
EXAMINATION: XR hip LT min 2V DATE: 09/13/2023 15:08 INDICATION: Idiopathic aseptic necrosis of left femur. TECHNIQUE: 2 views of left hip were obtained. COMPARISON: Left hip radiographs 05/11/2021 FINDINGS: Bone alignment is normal. No acute fracture. There is advanced left hip osteoarthritis. Lef t femoral head demonstrates sclerosis and superior flattening. IMPRESSION: 1. Advanced left hip osteoarthritis, stable from 05/11/2021. Reviewed, dictated and finalized at location E. S SERVICE ROUTE MANAGER
[2023-09-13 13:47] LABS: Glucose Point of Care 98 mg/dl (65-105)
== END 2023-09-13 13:29 | disposition home or self-care (01) ==
PROVIDERS: PCP Physician Assistant; Visit Provider Physician Assistant
DX: M87.052 Idiopathic aseptic necrosis of left femur (principal); R91.8 Other nonspecific abnormal finding of lung field; M16.12 Unilateral primary osteoarthritis, left hip
CPT/HCPCS: 73502; 78815; A9552

== ENCOUNTER 2023-09-25 15:42 | Outpatient (CLI) | payer OTHER, SELFPAY ==
--- NOTE | ~2023-09-25 | XR_ITS ---
EXAMINATION: XR lumbar spine 2-3V DATE: 09/25/2023 16:03 INDICATION: Lumbago. Sciatica. TECHNIQUE: 3 views of lumbar spine were obtained. COMPARISON: CT abdomen and pelvis 01/11/2022 FINDINGS: There is 8 degrees levocurvature of lumbar spine. Vertebral body heights are normal. There is mildly decreased disc height at L3-L4. There are endplate osteophytes at most levels. There is mul tilevel mild facet joint osteoarthritis. There is a total right hip arthroplasty. There is osteonecro sis of left femoral head and severe left hip osteoarthritis. IMPRESSION: 1. Mild lumbar spondylosis. Reviewed, dictated and finalized at location E. [employer] IMPRESSION: 1. Mild lumbar spondylosis.
== END 2023-09-25 15:43 | disposition home or self-care (01) ==
PROVIDERS: PCP Physician Assistant; Visit Provider Physician Assistant
DX: M54.40 Lumbago with sciatica, unspecified side (principal); I73.9 Peripheral vascular disease, unspecified; M47.896 Other spondylosis, lumbar region
CPT/HCPCS: 72100

== ENCOUNTER 2023-12-11 14:41 | Outpatient (CLI) | payer OTHER, SELFPAY ==
[2023-12-11 15:13] LABS: Hematocrit 37.3 % (42.0-52.0); Hemoglobin 12.3 g/dL (14.0-18.0); Mean Corpuscular Hemoglobin 33.9 pg (26-34); Mean Corpuscular Volume 102.8 fl (80-100); Mean Platelet Volume 10.6 fl (7.4-10.4); Platelet Count Result 224 k/mm3 (150-375); Red Blood Count 3.63 M/mm3 (4.6-6.20); Red Cell Distribution Width 13.7 % (11.5-14.5)
[2023-12-11 15:32] LABS: Alanine Aminotransferase 22 U/L (6-50); Albumin Level 4.6 g/dL (3.5-5.1); Alkaline Phosphatase 86 U/L (38-126); Anion Gap 7 mmol/L (4-12); Aspartate Amino Transferase 47 U/L (17-59); Bilirubin,Total 0.7 mg/dL (0.2-1.3); Blood Urea Nitrogen 18 mg/dL (9-20); CRP < 0.5 mg/dL (<1.0); Calcium 9.3 mg/dL (8.4-10.2); Carbon Dioxide 23 mmol/L (22-30); Chloride 109 mmol/L (98-107); Estimated Glomerular Filt Rate > 60; Glucose 110 mg/dL (65-110); Sodium 139 mmol/L (137-145)
[2023-12-11 15:46] LABS: Erythrocyte Sedimentation Rate 20 mm/hr (0-20)
== END 2023-12-11 14:42 | disposition home or self-care (01) ==
LOC: ANHLAB 14:42
PROVIDERS: PCP Physician Assistant; Visit Provider Nurse Practitioner
DX: K51.00 Ulcerative (chronic) pancolitis without complications (principal)
CPT/HCPCS: 36415; 80053; 85027; 85652; 86140

== ENCOUNTER 2023-12-18 08:56 | Outpatient (CLI) | payer OTHER, SELFPAY ==
[2023-12-12 12:59] VITALS: BMI 26.0
--- NOTE | 2023-12-12 13:00 | PC.NURSE ---
Pre Radiology instructions Report to the outpatient leonard ronna on date _[id number]_ at time _0900_ for procedure Time: _1100_ YOU MAY BE MONITORED AT HOSPITAL FOR UP TO 4 HOURS AFTER YOUR PROCEDURE. A visitor will be allowed to accompany the patient into the hospital. You and your visitor will be asked to self-screen and do not enter if you have any COVID symptoms. A mask is OPTIONAL within the hospital. Patients are to have no food or drink 6 hours prior to procedure time Driving will be restricted after the procedure, you must have a person to drive you home. Labs will be drawn in preop area and once reviewed, you will be taken to radiology area for procedure. When the procedure is completed, you will be taken to outpatient where you will be monitored for several hours. You may have one visitor in this area. Other than holding anti-coagulants, patient may take other medication(s) as scheduled. Prior to your appointment date patients are instructed to hold anti-coagulants after discussing with ordering provider to stop. If unable to discontinue anti-coagulants please notify radiologist. ? No aspirin or warfarin (Coumadin) for 7 days prior to the procedure. ? No clopidogrel (Plavix), ticagrelor (Brilinta), prasugrel (Effient) or dabigatran (Pradaxa) for 5 days prior to the procedure. ? No rivaroxaban (Xarelto), apixaban (Eliquis), dipyridamole (Aggrenox or Persantine) or cilostazol (Pletal) for 2 days prior to the procedure. Medications to discontinue per physician: Date to take last dose: Please leave all valuables, including medications, at home the day of procedure. The hospital will not accept responsibility for valuables. Wear comfortable, loose fitting clothing.? Follow any additional instructions given to you from ordering provider. Telephone instructions given to _Suhas__and asked if any additional questions and then verbalized understanding. Patient advised to call scheduling provider office or registration scheduling [phone] if any additional questions.
[2023-12-18] VITALS (10 sets, daily range): BP systolic 112–143; BP diastolic 68–93; PULSE 59–92; RESP 16; TEMP 36.2; O2SAT 97–100
--- NOTE | ~2023-12-18 | XR_ITS ---
EXAMINATION: XR chest 1V DATE: 12/18/2023 11:40 INDICATION: Right lung nodule status post percutaneous biopsy. TECHNIQUE: A single frontal view of the chest was obtained. COMPARISON: Chest CT 08/21/2023 FINDINGS: There is a nodule in right upper lobe. There is a small right pneumothorax. No pleural effu rian. The heart size is normal. IMPRESSION: 1. Nodule in right lung upper lobe, consistent with primary bronchogenic carcinoma and postbiopsy hem orrhage. 2. Small right pneumothorax. Reviewed, dictated and finalized at location A. IMPRESSION: 1. Nodule in right lung upper lobe, consistent with primary bronchogenic carcin jhonatan and postbiopsy hemorrhage. 2. Small right pneumothorax.
--- NOTE | ~2023-12-18 | CT_ITS ---
EXAMINATION: CT biopsy lung w/imaging DATE: 12/18/2023 11:37 INDICATION: Neoplasm of uncertain behavior of right lung. TECHNIQUE: The procedure including the risks, benefits, and alternatives and possibility of chest tub e placement were discussed with the patient. Risks discussed included infection, hemorrhage, approxim ately 1/3 risk of pneumothorax, approximately 1/10 risk of pneumothorax severe enough to warrant ches t tube placement, and rarely . The patient understood the risks and agreed to proceed. The patie nt was placed supine. The skin overlying the right lung was prepped and draped in sterile fashion. Anesthetic was administered with 1% lidocaine subcutaneously. A 19 gauge outer needle was advanced u nder CT guidance to the lesion of interest. A 20 gauge core biopsy needle was then used to obtain 3 c ore biopsy specimens. The needle was removed and the entry site was cleaned and dressed. The mA was a djusted according to patient size. Iterative reconstruction technique was employed. The dose-length p roduct was 155.29 mGy-cm. There were no immediate complications. FINDINGS: CT images demonstrate the outer needle tip adjacent to a 9 mm nodule in right lung upper lo be. IMPRESSION: 1. CT-guided core needle biopsy of a right lung nodule. Reviewed, dictated and finalized at location A.
--- NOTE | ~2023-12-18 | XR_ITS ---
EXAMINATION: XR chest 1V portable DATE: 12/18/2023 12:41 INDICATION: Right lung nodule status post percutaneous biopsy. TECHNIQUE: A single frontal view of the chest was obtained. COMPARISON: Chest single view at 11:35 AM FINDINGS: There are airspace opacities in right upper lobe. There is a small right pneumothorax. No p leural effusion. The heart size is normal. IMPRESSION: 1. Airspace opacities in right upper lobe, consistent with postbiopsy hemorrhage. 2. Worsened small right pneumothorax. Reviewed, dictated and finalized at location A. IMPRESSION: 1. Airspace opacities in right upper lobe, consistent with postbiopsy hemorrhag e. 2. Worsened small right pneumothorax.
--- NOTE | ~2023-12-18 | XR_ITS ---
EXAMINATION: XR chest 1V portable DATE: 12/18/2023 14:32 INDICATION: Right lung nodule status post percutaneous biopsy. TECHNIQUE: A single frontal view of the chest was obtained. COMPARISON: Chest single view at 12:33 PM FINDINGS: There is a moderate-sized right pneumothorax. There are airspace opacities in right mid naima g zone. No pleural effusion. The heart size is normal. IMPRESSION: 1. Worsened moderate-sized right pneumothorax. 2. Airspace opacities in right midlung zone, consistent with postbiopsy hemorrhage. Reviewed, dictated and finalized at location A. IMPRESSION: 1. Worsened moderate-sized right pneumothorax. 2. Airspace opacities in right midlung zone, consistent with postbiopsy hemorrh age.
[2023-12-18 10:00] LABS: INR 0.9; Prothrombin Time 12.1 Seconds (11.1-14.7)
--- NOTE | 2023-12-18 15:37 | SUR.PHASEII ---
1500: DRESSED, READY TO DC, WAITING ON RIDE.
== END 2023-12-18 15:35 | disposition home or self-care (01) ==
PROVIDERS: PCP Physician Assistant; Visit Provider Radiology Diagnostic Radiology
PROC: BB24ZZZ Computerized Tomography (CT Scan) of Bilateral Lungs (ICD-10-PCS; CPT 32408; principal; 2023-12-18 11:00)
DX: C34.11 Malignant neoplasm of upper lobe, right bronchus or lung (principal)
CPT/HCPCS: 32408; 36415; 71045; 85610; 88305; 88342

== ENCOUNTER 2025-07-14 13:40 | Outpatient (RCR) | payer OTHER, SELFPAY ==
[2025-07-14 14:13] LABS: Hematocrit 37.0 % (42.0-52.0); Hemoglobin 12.1 g/dL (14.0-18.0); Mean Corpuscular HGB Conc 32.7 g/dl (32-36); Mean Corpuscular Hemoglobin 34.6 pg (26-34); Mean Corpuscular Volume 105.7 fl (80-100); Platelet Count Result 220 k/mm3 (150-375); Red Blood Count 3.50 M/mm3 (4.6-6.20); White Blood Count 5.0 K/mm3 (4.5-10.0)
[2025-07-14 14:36] LABS: Iron 119 ug/dL (49-181)
[2025-07-14 14:47] LABS: Percent Iron Saturation 39 % (20-50)
[2025-07-14 15:17] LABS: Ferritin 172.00 ng/mL (11.1-264)
[2025-07-14 18:16] LABS: Alanine Aminotransferase 23 U/L (6-50); Albumin Level 4.6 g/dL (3.5-5.1); Alkaline Phosphatase 77 U/L (38-126); Anion Gap 8 mmol/L (4-12); Aspartate Amino Transferase 55 U/L (17-59); Bilirubin,Total 0.4 mg/dL (0.2-1.3); Blood Urea Nitrogen 15 mg/dL (9-20); CRP < 0.5 mg/dL (<1.0); Calcium 9.3 mg/dL (8.4-10.2); Carbon Dioxide 22 mmol/L (22-30); Chloride 109 mmol/L (98-107); Estimated Glomerular Filt Rate > 60; Glucose 82 mg/dL (65-110); Potassium 4.0 mmol/L (3.4-5.0); Sodium 139 mmol/L (137-145); Total Protein 8.6 g/dL (6.3-8.2); Vitamin B12 208.0 pg/mL (239-931)
[2025-07-18 02:07] LABS: Calprotectin, Fecal 56 ug/g (0-120)
== END 2025-07-14 13:41 | disposition home or self-care (01) ==
LOC: ANHLAB 13:40
PROVIDERS: PCP Physician Assistant; Visit Provider Nurse Practitioner
DX: K51.00 Ulcerative (chronic) pancolitis without complications (principal); K51.40 Inflammatory polyps of colon without complications; F10.10 Alcohol abuse, uncomplicated; D53.9 Nutritional anemia, unspecified
CPT/HCPCS: 36415; 80053; 82607; 82728; 82746; 83540; 83550; 83993; 85027; 85652; 86140